=== PATIENT | male | born 1935 | race Caucasian/White ===

== ENCOUNTER → 2016-12-08 | Outpatient (CLI) | payer MEDICARE | END | disposition home or self-care (01) | LOC: CFH 15:48 | PROVIDERS: ATTEND Internal Medicine Cardiovascular Disease | DX: I70.201 Unspecified atherosclerosis of native arteries of extremities, right leg (principal) ==

== ENCOUNTER → 2017-02-04 | Outpatient (CLI) | payer MEDICARE | END | disposition home or self-care (01) | LOC: CVU 08:03 | PROVIDERS: ATTEND Internal Medicine Cardiovascular Disease | DX: I70.203 Unspecified atherosclerosis of native arteries of extremities, bilateral legs (principal); I87.2 Venous insufficiency (chronic) (peripheral); I35.0 Nonrheumatic aortic (valve) stenosis; I10 Essential (primary) hypertension; Z86.73 Personal history of transient ischemic attack (TIA), and cerebral infarction without residual deficits | CPT/HCPCS: 93922; 93926; 93970 ==

== ENCOUNTER 2019-04-12 05:00 | Emergency (ER) | payer MEDICARE ==
[~2019-04-12] VITALS: Ht 182.9 cm; Wt 73.6 kg
[~2019-04-12 05:00] MED LIST: APIX5TAB PO; ATOR40TA78 PO; DOXA4TAB3 PO; ERYTHROMYCIN OP; MIDO2.5T PO; RIVA20TA PO; UBID1CAP53 PO
--- NOTE | 2019-04-12 05:25 | NUR ---
DENIES A FALL. WOKE W/ TIA SHOULDER JOINT PAIN. NO DISTRESS. PACED. NO SOB. HR RRR.
[2019-04-12 06:01] LABS: BASOPHILS # (AUTO) 0.04 x10^3/uL (0-0.1); BASOPHILS % (AUTO) 0 % (0-1); EOSINOPHILS # (AUTO) 0.47 x10^3/uL (0-0.4); EOSINOPHILS % (AUTO) 5 % (1-7); LYMPHOCYTES # (AUTO) 1.61 x10^3/uL (1-3.4); LYMPHOCYTES % (AUTO) 17 % (22-44); MD NO; MEAN CORPUSCULAR HEMOGLOBIN 32.9 pg (27.5-34.5); MEAN CORPUSCULAR HGB CONC 32.8 g/dL (33.2-36.2); MEAN PLATELET VOLUME 8.3 fL (7.4-10.4); MONOCYTES # (AUTO) 0.59 x10^3/uL (0.2-0.8); MONOCYTES % (AUTO) 6 % (2-9); NEUTROPHILS # (AUTO) 6.96 x10^3/uL (1.8-6.8); NEUTROPHILS % (AUTO) 72 % (42-75); PLATELET COUNT 197 x10^3/uL (130-400); RED BLOOD COUNT 4.65 x10^6/uL (4.38-5.82); RED CELL DISTRIBUTION WIDTH 14.7 % (9.4-14.8)
[2019-04-12 06:12] LABS: ALBUMIN 3.9 g/dL (3.4-5.0); ANION GAP 5 mmol/L (5-15); CALCIUM 9.6 mg/dL (8.5-10.1); CHLORIDE 106 mmol/L (98-107); CREATININE 1.02 mg/dL (0.7-1.3)
[2019-04-12 06:16] LABS: TROPONIN I < 0.015 ng/mL (0.000-0.045)
--- NOTE | 2019-04-12 06:20 | NUR ---
RETURNED FROM IMAGING. NO DISTRESS. DENIES C/O CP.
--- NOTE | 2019-04-12 07:08 | NUR ---
REPORT RECEIVED FROM DULCE BORJAS. PLAN OF CARE DISCUSSED.
--- NOTE | 2019-04-12 07:53 | NUR ---
PATIENT EDUCATED ON REPEAT TROPNIN DRAW, ASSISTED PT TO STANDING POSITION TO USE URINAL AT BEDSIDE. NOW SITTING AT EDGE OF BED, PROVIDED BLACK COFFEE PER REQUEST.
[2019-04-12 09:23] VITALS: BP 130/90
--- NOTE | 2019-04-12 09:26 | NUR ---
BREAK RN NOTE: PT RESTING ON GURNEY, A&O, RESPS EVEN AND UNLABORED. PT IS PACED/NSR ON AUDITING CONTROL CLERK, NO ECTOPY NOTED. PT DENIES PAIN. AWAITING REPEAT TROP AND DISPO, PT UPDATED WITH POC. PT PROVIDED WITH SECOND WARM BLANKET, DENIES ANY OTHER NEEDS. CALL LIGHT IN REACH, AT BS.
[2019-04-12 09:27] LABS: TROPONIN I < 0.015 ng/mL (0.000-0.045)
--- NOTE | 2019-04-12 10:30 | NUR ---
Patient/Caregiver given discharge instructions and they have confirmed that they understand the instructions. Patient does not want sling for shoulder. Patient discharged in wheelchair to car.
== END 2019-04-12 10:30 | disposition home or self-care (01) ==
LOC: ED 05:39
DX: M77.9 Enthesopathy, unspecified (principal); Z86.73 Personal history of transient ischemic attack (TIA), and cerebral infarction without residual deficits
CPT/HCPCS: 36415; 71045; 80048; 82040; 84484; 85025; 93005; 99284

== ENCOUNTER → 2019-11-10 | Outpatient (CLI) | payer MEDICARE | END | disposition home or self-care (01) | LOC: CVU 15:41 | PROVIDERS: ATTEND Internal Medicine Cardiovascular Disease | DX: I08.8 Other rheumatic multiple valve diseases (principal); R01.1 Cardiac murmur, unspecified | CPT/HCPCS: 93306 ==

== ENCOUNTER 2019-12-21 10:06 | Observation (INO) | payer MEDICARE ==
[~2019-12-21] VITALS: Ht 182.9 cm; Wt 75.0 kg
[2019-12-21] MEDS ORDERED: ASPI81TA45 PO (10:52)
[2019-12-21 11:27] VITALS: BP 144/84
[2019-12-21 11:32] LABS: BASOPHILS # (AUTO) 0.06 x10^3/uL (0-0.1); BASOPHILS % (AUTO) 1 % (0-1); EOSINOPHILS # (AUTO) 0.36 x10^3/uL (0-0.4); EOSINOPHILS % (AUTO) 6 % (1-7); LYMPHOCYTES # (AUTO) 1.23 x10^3/uL (1-3.4); LYMPHOCYTES % (AUTO) 22 % (22-44); MD NO; MEAN CORPUSCULAR HEMOGLOBIN 33.7 pg (27.5-34.5); MEAN CORPUSCULAR HGB CONC 32.9 g/dL (33.2-36.2); MEAN PLATELET VOLUME 7.8 fL (7.4-10.4); MONOCYTES # (AUTO) 0.56 x10^3/uL (0.2-0.8); MONOCYTES % (AUTO) 10 % (2-9); NEUTROPHILS # (AUTO) 3.49 x10^3/uL (1.8-6.8); NEUTROPHILS % (AUTO) 61 % (42-75); PLATELET COUNT 219 x10^3/uL (130-400); RED BLOOD COUNT 4.19 x10^6/uL (4.38-5.82); RED CELL DISTRIBUTION WIDTH 16.5 % (9.4-14.8)
[2019-12-21 11:43] LABS: ANION GAP 5 mmol/L (5-15); CHLORIDE 105 mmol/L (98-107); CREATININE 0.92 mg/dL (0.7-1.3)
[2019-12-21] MEDS ORDERED: FENTANYL PF 100 MCG/2ML ONE (12:27)
[2019-12-21] MEDS ORDERED: VERAPAMIL 2.5 MG/ML, 2ML ONE (12:27)
[2019-12-21] MEDS ORDERED: TICAGRELOR 90 MG TABLET ONE (12:27)
[2019-12-21] MEDS ORDERED: MIDAZOLAM 1 MG/ML, 5ML ONE (12:27)
[2019-12-21] MEDS ORDERED: BIVALIRUDIN 250 MG ONE (12:28)
[2019-12-21] MEDS ORDERED: HEPARIN 1,000 UNITS/ML, 10ML ONE (12:28)
[2019-12-21] MEDS ORDERED: LIDOCAINE-MPF 1%, 5ML ONE (12:28)
[2019-12-21] MEDS ORDERED: LIDOCAINE 2%, 20ML ONE (12:55)
[2019-12-21] MEDS ORDERED: hydrALAzine 20 MG/ML, 1ML ONE (12:56)
[2019-12-21] MEDS ORDERED: SODIUM CHLORIDE 0.9% 1,000 ML IV SCH (13:55)
[2019-12-21] MEDS ORDERED: BIVALIRUDIN 250 MG in SODIUM CHLORIDE 0.9% 50 ML IV SCH (13:55)
[2019-12-21] MEDS ORDERED: CLOPIDOGREL 300 MG TABLET ONE (13:58)
[2019-12-21] MEDS ORDERED: MIDODRINE 2.5 MG TABLET PO PRN (14:00)
[2019-12-21] MEDS ORDERED: hydrALAzine 20 MG/ML, 1ML IV PRN (14:30)
[2019-12-21 19:32] VITALS: BP 123/87
[2019-12-21] MEDS ORDERED: ATORVASTATIN 40 MG TABLET PO SCH (21:00)
[2019-12-21] MEDS ORDERED: RIVAROXABAN 20 MG TABLET PO SCH (21:00)
[2019-12-22 01:00] VITALS: BP 121/79
[2019-12-22] MEDS ORDERED: ASPIRIN 81 MG TABLET CHEW PO SCH (06:00)
[2019-12-22 06:25] LABS: ANION GAP 7 mmol/L (5-15); CALCIUM 8.7 mg/dL (8.5-10.1); CHLORIDE 106 mmol/L (98-107); CREATININE 0.95 mg/dL (0.7-1.3)
[2019-12-22 07:01] VITALS: BP 148/83
[2019-12-22] MEDS ORDERED: CLOP75TA PO (08:51)
[2019-12-22] MEDS ORDERED: CLOPIDOGREL 75 MG TABLET PO SCH (09:00)
== END 2019-12-22 11:00 | disposition home or self-care (01) ==
LOC: CACL 10:06 → ORIP 13:55 → 5SO 16:33 → DCLOUNGE 12-22 10:47
PROVIDERS: ADMIT Internal Medicine Cardiovascular Disease; ATTEND Internal Medicine Cardiovascular Disease
DX: Z03.818 Encounter for observation for suspected exposure to other biological agents ruled out (principal); I10 Essential (primary) hypertension; I48.0 Paroxysmal atrial fibrillation; I35.0 Nonrheumatic aortic (valve) stenosis; G45.9 Transient cerebral ischemic attack, unspecified; G47.30 Sleep apnea, unspecified; G47.00 Insomnia, unspecified; M25.40 Effusion, unspecified joint; E78.5 Hyperlipidemia, unspecified; D12.6 Benign neoplasm of colon, unspecified; L03.116 Cellulitis of left lower limb; F10.10 Alcohol abuse, uncomplicated; Z95.0 Presence of cardiac pacemaker; Z79.899 Other long term (current) drug therapy; Z86.73 Personal history of transient ischemic attack (TIA), and cerebral infarction without residual deficits; Z79.01 Long term (current) use of anticoagulants
CPT/HCPCS: 36415; 80048; 85025; 87635; 93005; 93460; 99156; 99157; C1725; C1760; C1769; C1874; C1887; C1894; C9600; G0378; J0360; J0583; J2250; J3010; J3490; Q9967; J1644

== ENCOUNTER → 2020-03-27 | Outpatient (CLI) | payer MEDICARE ==
[~2020-03-27] MED LIST changes: +ASPI81TA45 PO; +CLOP75TA PO; +VISIPAQUE 320 MG/ML, 150ML BOTTLE ONE
[2020-03-27 11:31] LABS: CREATININE 0.92 mg/dL (0.7-1.3)
== END | disposition home or self-care (01) ==
LOC: CVU 09:54
PROVIDERS: ATTEND Internal Medicine Cardiovascular Disease
DX: Z01.810 Encounter for preprocedural cardiovascular examination (principal); I65.23 Occlusion and stenosis of bilateral carotid arteries; I70.0 Atherosclerosis of aorta; I25.10 Atherosclerotic heart disease of native coronary artery without angina pectoris; M51.34 Other intervertebral disc degeneration, thoracic region; K76.0 Fatty (change of) liver, not elsewhere classified; N28.89 Other specified disorders of kidney and ureter; I70.8 Atherosclerosis of other arteries; N40.0 Benign prostatic hyperplasia without lower urinary tract symptoms
CPT/HCPCS: 36415; 71275; 74174; 82565; 93880; Q9967

== ENCOUNTER → 2020-03-29 | Outpatient (CLI) | payer MEDICARE ==
[~2020-03-29] MED LIST changes: -VISIPAQUE 320 MG/ML, 150ML BOTTLE ONE
== END | disposition home or self-care (01) ==
LOC: STAR 10:02
PROVIDERS: ATTEND Anesthesiology
DX: Z01.812 Encounter for preprocedural laboratory examination (principal); Z20.828 Contact with and (suspected) exposure to other viral communicable diseases
CPT/HCPCS: 36415; 87635

== ENCOUNTER → 2020-05-03 | Outpatient (CLI) | payer MEDICARE | END | disposition home or self-care (01) | LOC: CVU 08:38 | PROVIDERS: ATTEND Internal Medicine Cardiovascular Disease | DX: I08.1 Rheumatic disorders of both mitral and tricuspid valves (principal); I65.29 Occlusion and stenosis of unspecified carotid artery; Z95.0 Presence of cardiac pacemaker; Z95.2 Presence of prosthetic heart valve | CPT/HCPCS: 93306 ==